=== PATIENT | male | born 1980 | race Hispanic/Latino ===

== ENCOUNTER 2020-02-05 | Emergency (ER) | payer SELFPAY ==
[2020-02-05 21:09] LABS: HEMATOCRIT 38.9 % (39.0-50.0); HEMOGLOBIN 13.2 g/dl (14.0-18.0); IMMATURE GRANULOCYTES 0.5 % (0.0-5.0); MEAN CELL VOLUME 90.9 fL CALC (80.0-100.0); MEAN CORPUSCULAR HGB 30.8 pG CALC (26.0-32.0); MEAN CORPUSCULAR HGB CONC 33.9 g/dL CAL (32.0-36.0); NEUT# 10.43 thou/uL (1.82-7.42); RED BLOOD COUNT 4.28 mill/uL (4.70-6.10); RED CELL DISTRI WIDTH 12.4 % (11.5-15.5)
[2020-02-05 21:28] LABS: ANION GAP 12 (6-22 (CALC)); BUN 22 mg/dL (9-20); BUN/CREATININE RATIO 25 (12-20 (CALC)); CARBON DIOXIDE 23 mmol/l (22-30); CHLORIDE 104 mmol/l (95-108); CREATININE 0.9 mg/dL (0.7-1.3); GFR > 60 ML/MIN (>=60 (CALC)); GFR FOR AFR.AMER. > 60 ML/MIN (>=60 (CALC)); POTASSIUM 3.9 mmol/l (3.5-5.1); SODIUM 135 mmol/l (137-146)
[2020-02-05] MEDS ORDERED: ANUCORT-HC25 MG RE (21:39)
[2020-02-05] MEDS ORDERED: TRAMADOL HYDROC50 MG PO (21:39)
[2020-02-05] MEDS ORDERED: COLACE100 MG PO (21:39)
[2020-02-05] MEDS ORDERED: DOXYCYCL HYC100 MG PO (21:39)
== END 2020-02-05 22:00 | disposition home or self-care (01) | DRG 395 ==
DX: K64.8 Other hemorrhoids (principal)